=== PATIENT | male | born 1990 | race African-American/Black ===

== ENCOUNTER 2024-11-14 10:13 | Emergency (ER) | payer MEDICAID, OTHER ==
[~2024-11-14] VITALS: Ht 180.3 cm; Wt 76.0 kg
[2024-11-14 10:15] VITALS: O2SAT 100
[2024-11-14 10:38] VITALS: BP 120/65; PULSE 67; RESP 16; TEMP 98.3; O2SAT 99
== END 2024-11-14 13:59 | disposition home or self-care (01) ==
LOC: ER 10:13
DX: K08.89 Other specified disorders of teeth and supporting structures (principal); M54.2 Cervicalgia
CPT/HCPCS: 70486; 99284